=== PATIENT | male | born 1950 | race Caucasian/White ===

== ENCOUNTER → 2016-08-05 | Day surgery (SDC) | payer OTHER ==
[~2016-08-05] MED LIST: ADDERALL 15 MG15 M1 PO; ALPRAZOLAM0.25 MG PO; AMBIEN10 MG PO; AMLOD-VALSA-HC1 EAC4 PO; ASPIRIN81 M1 PO; ASPIRIN81 M2 PO; ATENOLOL PO; ATIVAN0.5 M1 PO; ATORVASTATIN CA20 MG PO; B-COMPLEX W/1 TAB.SA; B12 HEALTH1000 MCG/1 PO; BUPRENORPHIN-N1 EACH SL; CARVEDILOL25 MG PO; CATAPRES-TTS-20.2 MG TOP; CLONIDINE HCL0.3 MG PO; CLONIDINE1 EAC1 TD; CYMBALTA PO; DIOVAN320 MG PO; EXFORGE HCT 101 EAC2 PO; FERRO-TIME325 MG PO; FLEXERIL10 MG PO; FLOMAX0.4 M1 PO; GEMFIBROZIL1 GM; GLIMEPIRIDE2 MG; GLUCOPHAGE500 MG; HYDRALAZINE HC100 MG PO; HYDROCHLOROTHIA25 MG PO; IRON325 ( 65 ) PO; JANUMET 50-1,1 UDTAB PO; JANUVIA PO; K-DUR20 ME1 PO; LASIX PO; LASIX80 MG PO; LEXAPRO20 MG PO; LOTREL 10-20 MG1 CAP PO; MULTIPLE VITAMI1 T12 PO; NEURONTIN800 MG PO; OXYCODONE HCL15 MG PO; OXYCODONE15 MG PO; OXYCONTIN30 MG PO; PERCOCET 10/3251 TAB; PERCOCET PO; PRILOSEC20 M1 PO; PRILOSEC20 MG PO; PROBIOTIC1 EAC1 PO; REGLAN10 MG PO; STOOL SOFTENER100 M1 PO; TESTOSTERO200 MG/1 M IM; TRILEPTAL300 MG; VIAGRA; VIAGRA PO; VITAMIN B12 INJECTIO SUBQ; VITAMIN D400 UNI2 PO; WELLBUTRIN SR150 MG; ZETIA PO; ZOLPIDEM TARTRA10 MG PO
--- NOTE | ~2016-08-05 | OR ---
Unit #: [id number] #: [id number] Patient: YVONNE SANTOS [id number] [address] [address] [id number] O MR#: [id number] NAME: YVONNE SANTOS ROOM: Date of Procedure: 08/05/2016 Admission Date: 08/05/2016 Surgeon: Shiva Xavier M.D. : 1950 Attending Physician: Shiva Xavier M.D. Primary Care Physician: Tip Kirby M.D. OPERATIVE REPORT PREOPERATIVE DIAGNOSES 1. Degenerative disk disease with myelopathy. 2. Radiculopathy. 3. Back pain. POSTOPERATIVE DIAGNOSES 1. Degenerative disk disease with myelopathy. 2. Radiculopathy. 3. Back pain. PROCEDURE PERFORMED Lumbar epidural steroid injection with intravenous sedation and fluoroscopic guidance for needle localization. INDICATIONS FOR PROCEDURE The patient is a 65-year-old male with return of back and right greater than left lower extremity pain associated with multilevel multifactorial nonsurgical disk and spine disease. He was last treated with single epidural steroid injection 8 months ago. He did well until recently. Generally, he has gotten x1 and x2 injections, these generally helped 5 to 8 months. DESCRIPTION OF PROCEDURE The patient was placed in a seated position. Standard monitors were applied. 2 mg of Versed were given for sedation and anxiolysis, which were adequate. Vital signs remained stable. Sterile prep and drape then of the lumbar area was performed. The skin then at the L4-L5 level was localized with 1% lidocaine. An 18-gauge Hustead needle was then advanced via loss of resistance technique and fluoroscopic guidance in toward the epidural space. The patient did not complain of any pain or paresthesia during needle advancement. After confirming proper positioning with fluoroscopy and radiographic contrast, 80 mg of Depo-Medrol and 4 mL of 0.125% bupivacaine were deposited. The patient tolerated the procedure otherwise well and was discharged to the recovery room in stable condition. Dictated by... Shiva Xavier M.D. LHP/modl Unit #: [id number] #: [id number] Patient: YVONNE SANTOS TD: 08/05/2016 08:51 JOB #: [id number] OPERATIVE REPORT Page 1 of 1 X Shiva Xavier MD X PROCEDURE OPERATIVE NOTE
== END | disposition home or self-care (01) ==
LOC: CCSC 06:54
DX: M54.16 Radiculopathy, lumbar region (principal); M51.06 Intervertebral disc disorders with myelopathy, lumbar region; E11.9 Type 2 diabetes mellitus without complications; I10 Essential (primary) hypertension; N40.0 Benign prostatic hyperplasia without lower urinary tract symptoms; K21.9 Gastro-esophageal reflux disease without esophagitis; F41.9 Anxiety disorder, unspecified; F32.9 Major depressive disorder, single episode, unspecified; E78.00 Pure hypercholesterolemia, unspecified
CPT/HCPCS: 82947; J1040; J2250

== ENCOUNTER → 2016-11-13 | Day surgery (SDC) | payer OTHER ==
--- NOTE | ~2016-11-13 | OR ---
Unit #: [id number] #: [id number] Patient: YVONNE SANTOS [id number] [address] [address] [id number] O MR#: [id number] NAME: YVONNE SANTOS ROOM: Date of Procedure: 11/13/2016 Admission Date: 11/13/2016 Surgeon: Shiva Xavier M.D. : 1950 Attending Physician: Shiva Xavier M.D. Referring Physician: Shiva Xavier M.D. Primary Care Physician: Tip Kirby M.D. OPERATIVE REPORT PREOPERATIVE DIAGNOSES 1. Back pain. 2. Radiculopathy. 3. Lumbar disk herniation. POSTOPERATIVE DIAGNOSES 1. Back pain. 2. Radiculopathy. 3. Lumbar disk herniation. PROCEDURE PERFORMED Lumbar epidural steroid injection with intravenous sedation and fluoroscopic guidance for needle localization. INDICATIONS FOR PROCEDURE The patient is a 66-year-old male with return of back and at this point left greater than right lower extremity pain. He has multilevel multifactorial degenerative disk herniation disease. Last injections were done when the right leg was more significant, the injection of 3-1/2 months ago was continuing to keep that right leg slightly, his disk protrusions and herniations to the left L2-3 and L3-4 trialed on injection at that level. DESCRIPTION OF PROCEDURE The patient was placed in a seated position. Standard monitors were applied. Sterile prep and drape of the lumbar area was performed. The skin at the L3-L4 level was localized with 1% lidocaine. An 18-gauge TactoTektead needle was then advanced via loss of resistance technique and fluoroscopic guidance in toward the epidural space. After confirming proper positioning with fluoroscopy and radiographic contrast, 80 mg of Depo-Medrol and 4 mL of 0.125% bupivacaine were deposited. The patient tolerated the procedure otherwise well and was discharged to the recovery room in stable condition. Dictated by... Chris De JesusP/madyl TD: 11/14/2016 05:10 Unit #: [id number] #: [id number] Patient: YVONNE SANTOS JOB #: [id number] OPERATIVE REPORT Page 1 of 1 X Shiva Xavier MD X PROCEDURE OPERATIVE NOTE
== END | disposition home or self-care (01) ==
LOC: CCSC 08:12
DX: M51.16 Intervertebral disc disorders with radiculopathy, lumbar region (principal); E11.9 Type 2 diabetes mellitus without complications
CPT/HCPCS: 82947; J1040; J2250